=== PATIENT | female | born 1965 | race American Indian/Alaskan Native ===

== ENCOUNTER 2016-06-10 16:41 | Emergency (ER) | payer SELFPAY ==
[2016-06-10 18:09] VITALS: BP 150/80
[2016-06-10] MEDS ORDERED: MOTRIN PO ONE (20:03)
[2016-06-10] MEDS ORDERED: BOOSTRIX IM ONE (20:03)
[2016-06-10] MEDS ORDERED: NORCO 5/325 PO ONE (20:03)
[2016-06-10] MEDS ORDERED: hyperRAB S/D IM ONE (20:04)
[2016-06-10] MEDS ORDERED: RABAVERT RABIES VACCINE(PCEC) IM ONE (20:08)
--- NOTE | 2016-06-10 20:08 | Emergency Department Report ---
ED Animal Bite HPI - General Chief Complaint: Puncture Wound Stated Complaint: DOG BITE/KNOWN DOG Time Seen by Provider: 06/10/16 20:03 Source: patient Mode of arrival: Ambulatory Limitations: No Limitations - History of Present Illness Initial Comments: The patient reports multiple puncture wounds from a dog bite on her right elbow that started while she was trying to assist a neighbor that was being attacked by the dog. Complaint: animal bite Onset/Timin -: hour(s) Location: other (right elbow) Right: Elbow Animal: dog Animal Control Notified: Yes Description: household pet Mechanism: bite Pain Description: constant Severity scale (0 -10): 8 Context: provoked Associated Symptoms: erythema, discharge from wound. denies: bleeding, fever, chills, rash, loss of consciousness, cough, headache, diaphoresis, shortness of breath Treatments Prior to Arrival: wound dressing(s) - Related Data Patient Tetanus UTD: No Previous Rx's Medication Instructions Recorded Last Taken Type Amoxicillin/K Clav Tab [Augmentin 1 tab PO Q12HR #20 tab 06/10/16 Unknown Rx 875 mg] Ibuprofen [Motrin 800 MG tab] 800 mg PO Q8HR PRN #30 tablet 06/10/16 Unknown Rx Allergies Allergy/AdvReac Type Severity Reaction Status Date / Time No Known Allergies Allergy Unverified 06/10/16 18:04 ED Review of Systems ROS: Stated complaint: DOG BITE/KNOWN DOG Other details as noted in HPI Constitutional: denies: chills, diaphoresis, fever, malaise, weakness Respiratory: denies: cough, orthopnea, shortness of breath, SOB with exertion, SOB at rest, stridor, wheezing Cardiovascular: denies: chest pain, palpitations, dyspnea on exertion, orthopnea , edema, syncope, paroxysmal nocturnal dyspnea Musculoskeletal: denies: back pain, joint swelling, arthralgia, myalgia Skin: other (four puncture wounds near the right elbow, bleeding is controlled) . denies: rash, lesions, change in color, change in hair/nails, pruritus Hematological/Lymphatic: denies: easy bleeding, easy bruising, swollen glands ED Past Medical Hx - Past Medical History Previous Medical History?: No - Surgical History Additional Surgical History: throat? - Social History Smoking Status: Never Smoker Substance Use Type: Alcohol, Marijuana - Medications Home Medications: Home Medications Medication Instructions Recorded Confirmed Last Taken Type Amoxicillin/K Clav Tab [Augmentin 1 tab PO Q12HR #20 tab 06/10/16 Unknown Rx 875 mg] Ibuprofen [Motrin 800 MG tab] 800 mg PO Q8HR PRN #30 tablet 06/10/16 Unknown Rx ED Physical Exam - General Limitations: No Limitations General appearance: alert, in no apparent distress - Head Head exam: Present: atraumatic - ENT ENT exam: Present: normal exam, mucous membranes moist. Absent: mucous membranes dry - Neck Neck exam: Present: normal inspection, full ROM. Absent: tenderness, meningismus, lymphadenopathy, thyromegaly - Respiratory Respiratory exam: Present: normal lung sounds bilaterally. Absent: respiratory distress, wheezes, rales, rhonchi, stridor, chest wall tenderness, accessory muscle use, decreased breath sounds, prolonged expiratory - Cardiovascular Cardiovascular Exam: Present: regular rate, normal rhythm, normal heart sounds. Absent: systolic murmur, diastolic murmur, rubs, gallop, clicks, JVD, S3, S4 - Expanded Upper Extremity Exam Right Elbow exam: Present: full ROM, tenderness (elbow), swelling, other (four puncture wounds near the right elbow). Absent: abrasion, laceration, ecchymosis , deformity, crepidus, dislocation, erythema, effusion, pain w/ pronation/ supination, tenderness over radial head Neuro motor exam: Present: wrist extension intact, thumb opposition intact, thumb IP flexion intact, thumb adduction intact, fingers 2-5 abduction intact Neurosensory exam: Present: 2-point discrimination, radial nerve intact, ulnar nerve intact, median nerve intact Vascular: Present: normal capillary refill, radial pulse (2+), brachial pulse (2 +), ulnar pulse (2+). Absent: vascular compromise, Pallo, pulse deficit radial art, pulse deficit ulnar art, pulse deficit brachial art - Neurological Exam Neurological exam: Present: alert, oriented X3, CN II-XII intact, normal gait, reflexes normal. Absent: motor sensory deficit - Skin Skin exam: Present: warm, dry, intact, normal color. Absent: rash ED Course Vital Signs 06/10/16 06/10/16 06/10/16 18:04 20:21 20:32 Temperature 98.2 F Pulse Rate 71 Respiratory 18 18 18 Rate Blood Pressure 150/80 O2 Sat by Pulse 18 L Oximetry 06/10/16 06/10/16 06/10/16 21:21 21:32 22:52 Temperature Pulse Rate Respiratory 18 18 Rate Blood Pressure O2 Sat by Pulse 98 Oximetry - Reevaluation(s) Reevaluation #1: 06/10/16 20:08 analgesic, pain medication, Tetanus vaccination, rabies immune globin, vaccine and radiology studies ordered Reevaluation #2: 06/10/16 22:22 Wound irrigated and Rabies immune globin given Reevaluation #3: 06/10/16 23:11 PROCEDURE: XR ELBOW 3 RT TECHNIQUE: Three films obtained which are AP, oblique, and lateral HISTORY: Right elbow pain after trauma. Right elbow/dog bite COMPARISON: No prior studies are available for comparison. FINDINGS: There is no plain film evidence of fracture or dislocation. The soft tissue show no plain film abnormality with no plain film evidence of soft tissue air or radiopaque foreign body. IMPRESSION: There is no plain film evidence of fracture or dislocation or acute finding. Critical care attestation.: If time is entered above; I have spent that time in minutes in the direct care of this critically ill patient, excluding procedure time. ED Disposition Clinical Impression: Dog bite of elbow Qualifiers: Encounter type: initial encounter Laterality: right Qualified Code(s): S51.051A - Open bite, right elbow, initial encounter Disposition: DISCHARGED TO HOME OR SELFCARE Is pt being admited?: No Does the pt Need Aspirin: No Condition: Stable Instructions: Animal Bite (ED) Additional Instructions: Take medication as directed. Follow-up in the ED on June 13, ThursdayJune 17 and June 24 for remaining rabies vaccination. Keep the wound clean with antibacterial soap and dry Prescriptions: Amoxicillin/K Clav Tab [Augmentin 875 mg] 1 tab PO Q12HR #20 tab Ibuprofen [Motrin 800 MG tab] 800 mg PO Q8HR PRN #30 tablet PRN Reason: Pain Referrals: PRIMARY CARE,MD [Primary Care Provider] - 3-5 Days [facility] [Outside] - 3-5 Days Forms: Work/School Release Form(ED) Time of Disposition: 22:21
[2016-06-10] MEDS ORDERED: NACL 0.9% IR ONE (21:42)
--- NOTE | 2016-06-10 23:05 | XRay Report ---
FINAL REPORT PROCEDURE: XR ELBOW 3 RT TECHNIQUE: Three films obtained which are AP, oblique, and lateral HISTORY: Right elbow pain after trauma. Right elbow/dog bite COMPARISON: No prior studies are available for comparison. FINDINGS: There is no plain film evidence of fracture or dislocation. The soft tissue show no plain film abnormality with no plain film evidence of soft tissue air or radiopaque foreign body. IMPRESSION: There is no plain film evidence of fracture or dislocation or acute finding.
== END 2016-06-10 22:52 | disposition home or self-care (01) ==
LOC: ED 16:41
DX: S51.051A Open bite, right elbow, initial encounter (principal); F12.10 Cannabis abuse, uncomplicated; W54.0XXA Bitten by dog, initial encounter; Y93.9 Activity, unspecified; Y99.9 Unspecified external cause status; Y92.89 Other specified places as the place of occurrence of the external cause
CPT/HCPCS: 90375; 90471; 90675; 90715

== ENCOUNTER 2017-05-08 09:41 | Outpatient (CLI) | payer OTHER ==
--- NOTE | 2017-05-08 10:47 | XRay Report ---
RIGHT KNEE: History: Right knee pain. The bony architecture is intact without evidence of fracture or dislocation. No significant soft tissue abnormality is seen. IMPRESSION: Normal right knee.
--- NOTE | 2017-05-08 10:47 | XRay Report ---
LEFT WRIST: History: Wrist pain. Routine views demonstrate the carpal bones to be well mineralized with well preserved bony mineralization and interosseous joint spaces. The carpal and adjacent articular bones have normal contours. The surrounding soft tissues are unremarkable. IMPRESSION: Normal study.
== END 2017-05-08 09:42 | disposition home or self-care (01) ==
LOC: XRAY 09:41
PROVIDERS: ATTEND Internal Medicine
DX: Z02.71 Encounter for disability determination (principal); M25.532 Pain in left wrist; M25.561 Pain in right knee